=== PATIENT | male | born 1950 | race African-American/Black ===

== ENCOUNTER 2020-11-09 06:02 | Inpatient (IN) | payer MEDICARE ==
[2020-11-09] VITALS (11 sets, daily range): BP systolic 139–186; BP diastolic 72–117; BMI 31.5
[~2020-11-09] VITALS: Ht 188 cm; Wt 111.1 kg
[2020-11-09 07:50] LABS: BASOPHILS 0.2 % (0-2); EOSINOPHILS 0.2 % (0-7); HEMATOCRIT 42.6 % (42.0-54.0); HEMOGLOBIN 14.2 g/dL (13.5-17.5); IMMATURE GRANULOCYTES 0.6 % (0-5); LYMPHOCYTE ABS# 1.21 10x3/uL (1.32-3.57); LYMPHOCYTES 10.2 % (15-50); MCH 33.7 pg (26.0-34.0); MCHC 33.3 g/dL (31.0-37.0); MCV 101.2 fL (80.0-100.0); MEAN PLATELET VOLUME 8.7 fL (7.4-10.4); MONOCYTES 6.9 % (2-11); NEUTROPHIL ABS# 9.69 10x3/uL (1.78-5.38); NEUTROPHILS 81.9 % (40-80); PLATELET COUNT 201 10x3/uL (130-400); RBC 4.21 10x6/uL (4.20-6.10); RDW 13.9 % (11.5-14.5); WBC 11.8 10x3/uL (4.8-10.8)
[2020-11-09 07:58] LABS: INR 1.1 (0.85-1.17); PROTIME 13.2 SECONDS (11.6-15.0)
[2020-11-09 08:00] LABS: CALC OSMOLALITY 276 mosm/kg (275-300); CALCIUM 9.4 mg/dL (8.5-10.1); CARBON DIOXIDE 27.9 mmol/L (21.0-32.0); CHLORIDE - SERUM 103 mmol/L (98-107); CREATININE - SERUM 0.8 mg/dL (0.6-1.3); GLUCOSE 98 mg/dL (74-106); POTASSIUM - SERUM 4.7 mmol/L (3.5-5.1); SODIUM 139 mmol/L (136-145); UREA NITROGEN 11 mg/dL (7-18); eGFR NON AFRICAN AMERICAN > 90 mL/min (90-120)
--- NOTE | 2020-11-09 08:14 | NUR ---
PATIENT TAKEN TO CT AT 0745, RETURNED TO ROOM AT 0812. TOLERATED CT WELL.
[2020-11-09 08:17] LABS: ALBUMIN 3.5 g/dL (3.4-5.0); ALKALINE PHOSPHATASE 72 U/L (30-120); ALT (SGPT) 23 U/L (10-68); BILIRUBIN - TOTAL 0.22 mg/dL (0.2-1.3); CKMB 10.1 U/L (0.0-3.6); CREATINE KINASE 552 UL (21-232); MAGNESIUM - SERUM 1.7 mg/dL (1.8-2.4); PROTEIN - SERUM 7.9 g/dL (6.4-8.2); TROPONIN-I < 0.017 ng/mL (0.000-0.060)
--- NOTE | 2020-11-09 08:56 | NUR ---
PATIENT ASSISTED TO POSITION OF COMFORT.
--- NOTE | 2020-11-09 11:29 | NUR ---
SURGERY PACKET COMPLETE.
--- NOTE | 2020-11-09 12:49 | NUR ---
PATIENT TAKEN TO SURGERY BY OR TEAM.
--- NOTE | 2020-11-09 14:55 | NUR ---
REPORT CALLED TO MED SURG. ACCEPTED TO ROOM 2207.
--- NOTE | 2020-11-09 16:53 | NUR ---
ARRIVES TO UNIT FROM RECOVERY, 02 AT 3 LITERS PER NC, IV INFUSING PER RAC, DRAIN TO L SHOULDER, DRESSING CLEAR CLEAN AND DRY, SURGICAL SITE COVERED, ALSO IT IS CLEAN AND DRY, PT SLEEPING, SLING IN PLACE TO L ARM, CONT TO MONITOR PAIN
--- NOTE | 2020-11-09 17:16 | NUR ---
PT STATES THAT HE TAKES NO HOME MEDS.
--- NOTE | 2020-11-09 19:29 | NUR ---
MOVED PATIENT TO ROOM 1204. PATIENT TRANS FROM WHEELCHAIR TO BED WITHOUT DIFFICULTY. PATIENT'S O2 AT 84% ON 3L NC. INCREASED OXYGEN TO 4L. PATIENT'S O2 AT 94%. PATIENT'S DRESSING TO LEFT SHOULDER C/D/I. SLING IN PLACE. SCD HOSE AND NON-SLIP SOCKS IN PLACE. IV INFUSING TO RIGHT AC, NO SIGNS OF INFILTRATION NOTED. PATIENT DENIES OTHER NEEDS AT THIS TIME. BED IN LOWEST POSITION, CALL LIGHT WITHIN REACH, AND BED ALARM ON. ENCOURAGED THE PATIENT TO CALL IF HE HAS NEEDS.
[2020-11-10] VITALS (7 sets, daily range): BP systolic 115–155; BP diastolic 38–79; Ht 188 cm; Wt 111.1 kg
--- NOTE | 2020-11-10 07:12 | OP ---
PATIENT NAME: ELIA RAO MEDICAL RECORD: [id number] :46 LOCATION:D.M3 D.1204 ADMISSION DATE:11/09/20 SURGEON: RAYRAY LEE DO DATE OF OPERATION: 11/09/2020 PROCEDURE PERFORMED: Left reverse total shoulder arthroplasty. PREOPERATIVE DIAGNOSIS: Left proximal humerus fracture. POSTOPERATIVE DIAGNOSIS: Left proximal humerus fracture. INDICATIONS: Mr. Elia Rao is a 69-year-old male who had a syncopal episode and fell onto his left shoulder and side early this morning and he was brought to the ER. He had x-rays done of his left shoulder, seeing a proximal humerus fracture that was comminuted in about 3 different pieces at the surgical neck extending down to the shaft approximately 3 cm. The patient also had rib fractures on that side, I believe 3 or 4, he was in severe pain. I talked to him about what to do. I told him we could try fracture fixation through a nail or plate. He then told me that 3 years ago he was told that he needed a shoulder replacement and that his rotator cuff was torn. In going up that information, I told him that if that were the case, then a reverse total shoulder would be the best option for him. He was okay with that and was aware of the risks including infection, bleeding, damage to nerves or vessels in the area, continued pain, loosening of implants, failure of implants, dislocation, blood clots, need for further surgery, loss of motion of that arm and even and he signed the consent. SURGEON: Rayray Lee DO DESCRIPTION OF PROCEDURE: The patient was given a block by anesthesia in preoperative area and taken to the operative suite, laid in supine position, sedated and intubated. He was then given 900 mg of clindamycin and moved over to the table, sat up in the beach chair position and the left shoulder was prepped and draped in sterile fashion. Timeout was performed. Everyone was in agreement with the correct site, side, patient, and procedure. I then began by making an incision over the deltopectoral interval, making careful dissection down to the pectoral, released the proximal centimeter or so and tenodesed the long head of the biceps tendon to it and then cut the long head of the biceps, followed up into the rotator interval, peeled off the subscapularis after tagging it and then finished off the tear that was in the supraspinatus and then removed the proximal humerus fracture. I then exposed the glenoid, removed the labrum, put a centering pin in and then reamed from the baseplate, first tried 30, then a 35 and a 40 screw. 40 central screw got a good bite and then put three 25 peripheral screws and 20 mm in the anterior inferior that was overall 25 mm locking screws. Got good fixation of the baseplate and then impacted on the glenosphere with a +3. I then exposed the humeral shaft, reamed to a 14, decided to go with a 12 with a cement mantle with a fracture stem. I then cleaned out the humeral shaft, put in a 12 to trial. Wrapped in a Ray-Marvin and then reduced it, seemed to have adequate height, but we knew we have to build up on the tray due to it being somewhat loose. I then irrigated out the humerus and put in a cement stopper and mixed the cement. Cement was entered into the canal and then put on the implant and then the implant was put in using a 30-degree external rotation guide off of the instrument on the forearm. The cement then hardened. I then trialed a +5 tray with a +3 poly. It seemed to fit well, had good tension on the deltoid and the conjoined tendon, I decided to OPERATIVE REPORT [id number] ELIA RAO go with that. I then reduced it and while ranging, brought the arm forward flexion and it seemed very loose. It was easy to shuck and dislocate with arm at 90 degrees of forward flexion. I did not want that as there is a risk of dislocation. I then removed the +5 tray and put a +10 tray with a 3 retention poly in and reduced with somewhat difficulty, but it did reduce and had good tension on the deltoid and conjoined tendon and was more stable in forward flexion and 0 degrees abduction also, had good range of motion. I then irrigated with a 10% povidone iodine and 500 mL of normal saline solution and irrigated that out with over a liter of normal saline. I then put in Jair, vancomycin and tobramycin powder, put a drain through the shoulder exiting posteriorly. Jayant Nuñez, certified personal chef, closed the site with 2-0 Vicryl in inverted interrupted fashion, 4-0 Monocryl running on the skin, Prineo glue on the skin and then secured the drain with 2 Tegaderms. He was then dressed with Telfa and Tegaderm, awakened and put in a sling and taken to recovery in stable condition. Blood loss was approximately 200 mL. COMPLICATIONS: None. TRANSINT:[id number] Voice Confirmation ID: [id number] DOCUMENT ID: [id number] RAYRAY LEE DO at 0712 CC: [id number] DICTATION DATE: 11/09/20 1548 HEALTH TECHNICAL WRITER: 11/10/20 0013 ADM IN [facility] [address] [place] [address]
--- NOTE | 2020-11-10 07:58 | NUR ---
PT SEEN AND ASSESSED. LUNG SOUNDS CRACKLES AND RALES OXYGEN AT 4L PER NC. DRESSING TO LEFT SHOULDER CLEAN DRY INTACT WITH ALYSSA DRAIN COMPRESSED. SCDS ON BILAT. INSTRUCTED/ENCOURAGED WITH INCENTIVE SPIROMETRY. STATES RIBS HURT. CALL LIGHT IN REACH
[2020-11-10 07:59] LABS: BASOPHILS 0.1 % (0-2); EOSINOPHILS 0.1 % (0-7); HEMATOCRIT 37.2 % (42.0-54.0); HEMOGLOBIN 12.1 g/dL (13.5-17.5); IMMATURE GRANULOCYTES 0.1 % (0-5); LYMPHOCYTE ABS# 1.04 10x3/uL (1.32-3.57); LYMPHOCYTES 12.9 % (15-50); MCH 33.2 pg (26.0-34.0); MCHC 32.5 g/dL (31.0-37.0); MCV 101.9 fL (80.0-100.0); MEAN PLATELET VOLUME 9.1 fL (7.4-10.4); MONOCYTES 11.8 % (2-11); NEUTROPHIL ABS# 6.06 10x3/uL (1.78-5.38); PLATELET COUNT 202 10x3/uL (130-400); RBC 3.65 10x6/uL (4.20-6.10); RDW 13.8 % (11.5-14.5)
[2020-11-10 08:06] LABS: WBC 8.1 10x3/uL (4.8-10.8)
[2020-11-10 08:20] LABS: ALKALINE PHOSPHATASE 47 U/L (30-120); ALT (SGPT) 19 U/L (10-68); BILIRUBIN - TOTAL 0.78 mg/dL (0.2-1.3); CALC OSMOLALITY 270 mosm/kg (275-300); CALCIUM 8.1 mg/dL (8.5-10.1); CARBON DIOXIDE 26.8 mmol/L (21.0-32.0); CHLORIDE - SERUM 102 mmol/L (98-107); CREATININE - SERUM 0.8 mg/dL (0.6-1.3); GLUCOSE 106 mg/dL (74-106); MAGNESIUM - SERUM 1.5 mg/dL (1.8-2.4); PHOSPHOROUS 2.8 mg/dL (2.5-4.9); POTASSIUM - SERUM 4.1 mmol/L (3.5-5.1); PROTEIN - SERUM 6.5 g/dL (6.4-8.2); SODIUM 136 mmol/L (136-145); UREA NITROGEN 9 mg/dL (7-18); eGFR NON AFRICAN AMERICAN > 90 mL/min (90-120)
[2020-11-10 12:42] LABS: UDS - AMPHET NEGATIVE QUAL (NEGATIVE); UDS - BARB NEGATIVE QUAL (NEGATIVE); UDS - BENZO POSITIVE QUAL (NEGATIVE); UDS - COCAINE NEGATIVE QUAL (NEGATIVE); UDS - OPIATE NEGATIVE QUAL (NEGATIVE); UDS - PCP NEGATIVE QUAL (NEGATIVE); UDS - THC NEGATIVE QUAL (NEGATIVE)
--- NOTE | 2020-11-11 02:23 | NUR ---
PT RESTING WITH EYES CLOSED, RESPIRATIONS EVEN AND UNLABORED. VSS. BED IS LOW, CALL LIGHT WITHIN REACH, BED ALARM ON.
[2020-11-11 05:00] VITALS: BP 142/70
--- NOTE | 2020-11-11 07:22 | NUR ---
DAVOL DRAIN REMOVED ORDERED TO LEFT SHOULDER. SMALL 2 X 2 AND WHITE SQUARE BORDER GUAZE PLACED. NO BLLEDING SEEN. DATED. TOLERATED WELL.
[2020-11-11 07:36] VITALS: BP 144/86
[2020-11-11 08:03] LABS: BASOPHILS 0.1 % (0-2); EOSINOPHILS 0.1 % (0-7); HEMATOCRIT 35.5 % (42.0-54.0); HEMOGLOBIN 11.5 g/dL (13.5-17.5); IMMATURE GRANULOCYTES 0.3 % (0-5); LYMPHOCYTE ABS# 1.01 10x3/uL (1.32-3.57); LYMPHOCYTES 10.1 % (15-50); MCH 33.2 pg (26.0-34.0); MCHC 32.4 g/dL (31.0-37.0); MCV 102.6 fL (80.0-100.0); MEAN PLATELET VOLUME 8.9 fL (7.4-10.4); MONOCYTES 9.6 % (2-11); NEUTROPHILS 79.8 % (40-80); PLATELET COUNT 184 10x3/uL (130-400); RBC 3.46 10x6/uL (4.20-6.10)
--- NOTE | 2020-11-11 08:06 | NUR ---
AWAKE AND ALERT. ORIENTED X3. NO C/O AT THIS TIME. LUNGS HAVE CRACKLES THROUGHOUT LUNG GUEVARA, PRODUCTIVE COUGH REPORTED. SKIN IS INTACT WITHOUT REDNESS EXCEPT INCISION TO LEFT SHOULDER WHICH HAS A DRY INTACT DRESSING IN PLACE. SLING IN PLACE TO LEFT ARM, REPOSITIONED ON PILLOW TO ALLEVIATE SWELLING IN LEFT HAND. IV TO RIGHT AC IS PATENT WITHOUT REDNESS AT INSERTION SITE. DENIES NEEDS.
[2020-11-11 08:07] LABS: ALBUMIN 2.8 g/dL (3.4-5.0); ALKALINE PHOSPHATASE 52 U/L (30-120); ALT (SGPT) 17 U/L (10-68); CALC OSMOLALITY 273 mosm/kg (275-300); CALCIUM 8.4 mg/dL (8.5-10.1); CARBON DIOXIDE 27.9 mmol/L (21.0-32.0); CHLORIDE - SERUM 103 mmol/L (98-107); CREATININE - SERUM 0.7 mg/dL (0.6-1.3); GLUCOSE 117 mg/dL (74-106); PHOSPHOROUS 2.2 mg/dL (2.5-4.9); POTASSIUM - SERUM 3.9 mmol/L (3.5-5.1); PROTEIN - SERUM 6.3 g/dL (6.4-8.2); SODIUM 137 mmol/L (136-145); UREA NITROGEN 9 mg/dL (7-18); eGFR NON AFRICAN AMERICAN > 90 mL/min (90-120)
[2020-11-11 08:11] LABS: MAGNESIUM - SERUM 1.9 mg/dL (1.8-2.4)
--- NOTE | 2020-11-11 09:25 | NUR ---
ATE MOST OF BREAKFAST. TOOK AM MEDS WITHOUT DIFFICULTY. DENIES NEEDS. UP IN CHAIR AT BEDSIDE.
[2020-11-11 11:20] VITALS: BP 148/72
--- NOTE | 2020-11-11 15:27 | NUR ---
Rehab Note- Acute Inpatient Rehab prescreen order received. The patient is a good candidate for an inpatient acute rehab stay when medically stable, will need a PCR Covid screening if he is inagreeance with [facility] Acute Inpatient Rehab stay when discharged from the acute hospital. Thank you for this referral! Latricia Rudd RN Clinical Liaison, [facility] Rehab
--- NOTE | 2020-11-11 16:00 | NUR ---
FOUND WITH IV OUT. CATHETER INTACT. WILL RESITE.
--- NOTE | 2020-11-11 17:30 | NUR ---
UP TO BR PER SBA. NO BM AT THIS TIME. RESITED IV TO RIGHT FOREARM AFTER ONE ATTEMPT WITH 20 G. NO CHANGES NOTED. DENIES NEEDS.
[2020-11-11 17:50] VITALS: BP 153/85
[2020-11-11 19:54] VITALS: BP 136/75
--- NOTE | 2020-11-11 20:00 | NUR ---
ALERT SITTING UP IN CHAIR AT BEDSIDE, LEFT ARM IN SLING, DENIES PAIN OR NEEDS AT THIS TIME, SEE SHIFT ASSESSMENT, CALL LIGHT IN REACH
[2020-11-12 04:30] VITALS: BP 147/83
[2020-11-12] MEDS ORDERED: HYDROCODON-ACE1 EA10 PO (07:20)
--- NOTE | 2020-11-12 07:23 | NUR ---
RESTING IN BED WITH EYES CLOSED, NO CURRENT S/S OF DISTRESS. CURRENTLY RCVING 4L VIA NC. IV LOCATED TO RIGHT FA CURRENTLY RUNNING 1/2NS @ 30ML. WILL CONT TO MONITOR.
[2020-11-12 08:53] LABS: BASOPHILS 0.1 % (0-2); EOSINOPHILS 0.9 % (0-7); HEMATOCRIT 33.5 % (42.0-54.0); HEMOGLOBIN 10.7 g/dL (13.5-17.5); IMMATURE GRANULOCYTES 0.2 % (0-5); LYMPHOCYTE ABS# 1.57 10x3/uL (1.32-3.57); LYMPHOCYTES 17.2 % (15-50); MCHC 31.9 g/dL (31.0-37.0); MCV 103.4 fL (80.0-100.0); MONOCYTES 8.1 % (2-11); NEUTROPHIL ABS# 6.72 10x3/uL (1.78-5.38); NEUTROPHILS 73.5 % (40-80); PLATELET COUNT 196 10x3/uL (130-400); RBC 3.24 10x6/uL (4.20-6.10); RDW 13.9 % (11.5-14.5); WBC 9.1 10x3/uL (4.8-10.8)
--- NOTE | 2020-11-12 09:05 | NUR ---
DRESSING TO SHOULDER CHANGED PER DRS ORDERS.
[2020-11-12 09:13] LABS: ALBUMIN 2.5 g/dL (3.4-5.0); ALKALINE PHOSPHATASE 50 U/L (30-120); ALT (SGPT) 18 U/L (10-68); BILIRUBIN - TOTAL 0.55 mg/dL (0.2-1.3); CALC OSMOLALITY 272 mosm/kg (275-300); CALCIUM 8.3 mg/dL (8.5-10.1); CARBON DIOXIDE 30.4 mmol/L (21.0-32.0); CHLORIDE - SERUM 103 mmol/L (98-107); CREATININE - SERUM 0.7 mg/dL (0.6-1.3); GLUCOSE 91 mg/dL (74-106); MAGNESIUM - SERUM 2.1 mg/dL (1.8-2.4); PHOSPHOROUS 2.5 mg/dL (2.5-4.9); POTASSIUM - SERUM 3.9 mmol/L (3.5-5.1); SODIUM 137 mmol/L (136-145); UREA NITROGEN 9 mg/dL (7-18); eGFR NON AFRICAN AMERICAN > 90 mL/min (90-120)
[2020-11-12 09:21] VITALS: BP 132/72
--- NOTE | 2020-11-12 11:12 | MORECARE ---
CASE MANAGEMENT DISCHARGE SUMMARY PATIENT: MANDY TORRES UNIT: [id number] ADM DATE: 11/09/20 AGE: 69 : 48 SEX: M ROOM/BED: D.1204 AUTHOR: DC TSANG PHYSICIAN: REFERRING PHYSICIAN: EZRA LOZA MD DATE OF SERVICE: 11/12/20 Discharge Plan Patient Name: MANDY TORRES [facility] [facility] 1950 Planned Disposition: Inpatient Rehab Anticipated Discharge Date: Discharge Date: Expected LOS: Initial Reviewer: [email or web address] Initial Review Date: 11/09/2020 Generated: 11/12/20 12:12 pm DCPIA - Discharge Planning Initial Assessment Updated by [email or web address]: Mica You on 11/12/20 11:11 am * Is the patient Alert and Oriented? Yes * How many steps to enter\exit or inside your home? 10 * PCP NO PCP * [facility] * Preadmission Environment Home Alone * ADLs Independent * Other Equipment CPAP AND 02 TANK - OLD HASN'T BEEN MAINTAINED FOR 7 YRS * List name and contact numbers for known caregivers / representatives who currently or will assist patient after discharge: JENNA TORRES - DAUGHTER - [phone] * Verbal permission to speak to the caregivers and representatives has been obtained from the patient. Yes * Community resources currently utilized None * Additional services required to return to the preadmission environment? No * Can the patient safely return to the preadmission environment? Yes * Has this patient been hospitalized within the prior 30 days at any hospital? No Patient Name: MANDY TORRES Page [id number] at 1112 All edits/amendments must be made on the electronic document DICTATION DATE: 11/12/20 111 GROUNDS CLEANER: LAURA 11/12/20 111 RPT#: [id number] DC DATE: STATUS: ADM IN [facility] [address] [place] [address] END OF REPORT
--- NOTE | 2020-11-12 11:21 | MORECARE ---
CASE MANAGEMENT DISCHARGE SUMMARY PATIENT: MANDY TORRES UNIT: [id number] ADM DATE: 11/09/20 AGE: 69 : 48 SEX: M ROOM/BED: D.1204 AUTHOR: SHARAN,DOC PHYSICIAN: REFERRING PHYSICIAN: EZRA LOZA MD DATE OF SERVICE: 11/12/20 Discharge Plan Patient Name: MANDY TORRES Facility: [facility]:[place] : 1950 Planned Disposition: Inpatient Rehab Anticipated Discharge Date: Discharge Date: Expected LOS: Initial Reviewer: [email or web address] Initial Review Date: 11/09/2020 Generated: 11/12/20 12:20 pm Comments DCP- Discharge Planning Updated by [email or web address]: Mica You on 11/12/20 10:[address] Patient Name: MANDY TORRES Admission Status: ER Accout number: [id number] Admission Date: 11-09-2020 : 1950 Admission Diagnosis:PAIN IN LEFT SHOULDER Attending: EZRA LOZA Current LOS: 3 Anticipated DC Date: Planned Disposition: Inpatient Rehab Primary Insurance: MEDICARE A & B Discharge Planning Comments: CM met with patient to complete initial dc planning assessment. CM educated patient on the CM role and verbal consent given by patient to complete assessment. Patient lives at home alone. Patient is independent. At discharge patient plans to return home and feels this is a safe discharge. CM discussed availability of home health, rehab services, and medical equipment. Patient would like inpatient rehab [facility] signed. Patient will have family to transport home. Patient denied known discharge needs at this time. CM will continue to follow and will assist as needed with dc plans/needs. D/C IMM SIGNED 11/12/20 @ 1010. Public Relations Director: Mica You DCPIA - Discharge Planning Initial Assessment Updated by [email or web address]: Mica You on 11/12/20 11:11 am * Is the patient Alert and Oriented? Yes * How many steps to enter\exit or inside your home? 10 * PCP NO PCP * [facility] * Preadmission Environment Home Alone * ADLs Independent * Other Equipment CPAP AND 02 TANK - OLD HASN'T BEEN MAINTAINED FOR 7 YRS * List name and contact numbers for known caregivers / representatives who currently or will assist patient after discharge: JENNA TORRES - DAUGHTER - [phone] * Verbal permission to speak to the caregivers and representatives has been obtained from the patient. Yes * Community resources currently utilized None * Additional services required to return to the preadmission environment? No * Can the patient safely return to the preadmission environment? Yes * Has this patient been hospitalized within the prior 30 days at any hospital? No Last DP export: 11/12/20 10:12 a Patient Name: MANDY TORRES Page [id number] at 1121 All edits/amendments must be made on the electronic document DICTATION DATE: 11/12/201119 TRANSCRIPTION SPECIALIST: LAURA 11/12/201119 RPT#: [id number] DC DATE: STATUS: ADM IN [facility] [address] [place] [address] END OF REPORT
[2020-11-12] MEDS ORDERED: LIBRIUM25 MG PO (12:11)
[2020-11-12] MEDS ORDERED: IPRAT-ALBUT 0.5-3 ML UPD (12:11)
[2020-11-12] MEDS ORDERED: COLACE100 MG PO (12:11)
[2020-11-12] MEDS ORDERED: NICODERM CQ1 EAC2 TRANSDERM (12:11)
[2020-11-12] MEDS ORDERED: MIRALAX17 GM PO (12:11)
[2020-11-12] MEDS ORDERED: HYDRALAZINE20 MG/ML IV (12:11)
[2020-11-12] MEDS ORDERED: MUCINEX600 MG PO (12:11)
[2020-11-12] MEDS ORDERED: ATIVAN1 MG PO (12:11)
[2020-11-12] MEDS ORDERED: VITAMIN B-1100 M1 PO (12:11)
[2020-11-12] MEDS ORDERED: MULTI-DAY VITAM1 TAB PO (12:11)
[2020-11-12 13:43] VITALS: BP 128/60
[2020-11-12 16:58] VITALS: BP 141/80
--- NOTE | 2020-11-12 18:14 | NUR ---
REPORT CALLED TO [facility]. ASKED TO WAIT TILL SHIFT CHANGE OR LATER. WILL CALL WHEN READY FOR PT. CALL LIGHT IN REACH. DC PAPERS SIGNED
--- NOTE | 2020-11-12 19:15 | NUR ---
ALERT SITTING UP IN CHAIR AT BEDSIDE, LEFT ARM IN SLING, DENIES PAIN OR NEEDS AT THIS TIME, AWAITING TRANSFER TO REHAB
[2020-11-12 20:09] VITALS: BP 118/65
--- NOTE | 2020-11-13 06:43 | MORECARE ---
CASE MANAGEMENT DISCHARGE SUMMARY PATIENT: MANDY TORRES UNIT: [id number] ADM DATE: 11/09/20 AGE: 69 : 48 SEX: M ROOM/BED: D.1204 AUTHOR: SHARAN,DOC PHYSICIAN: REFERRING PHYSICIAN: EZRA LOZA MD DATE OF SERVICE: 11/13/20 Discharge Plan Patient Name: MANDY TORRES Facility: [facility]:[place] : 1950 Planned Disposition: Inpatient Rehab Anticipated Discharge Date: Discharge Date: 11/12/2020 Expected LOS: Initial Reviewer: [email or web address] Initial Review Date: 11/09/2020 Generated: 11/13/20 7:42 am Comments DCP- Discharge Planning Updated by [email or web address]: Mica You on 11/12/20 10:[address] Patient Name: MANDY TORRES Admission Status: ER Accout number: [id number] Admission Date: 11-09-2020 : 1950 Admission Diagnosis:PAIN IN LEFT SHOULDER Attending: EZRA LOZA Current LOS: 3 Anticipated DC Date: Planned Disposition: Inpatient Rehab Primary Insurance: MEDICARE A & B Discharge Planning Comments: CM met with patient to complete initial dc planning assessment. CM educated patient on the CM role and verbal consent given by patient to complete assessment. Patient lives at home alone. Patient is independent. At discharge patient plans to return home and feels this is a safe discharge. CM discussed availability of home health, rehab services, and medical equipment. Patient would like inpatient rehab [facility] signed. Patient will have family to transport home. Patient denied known discharge needs at this time. CM will continue to follow and will assist as needed with dc plans/needs. D/C IMM SIGNED 11/12/20 @ 1010. Snow Plow Operator: Mica You DCPIA - Discharge Planning Initial Assessment Updated by [id number]: Mica You on 11/12/20 11:11 am * Is the patient Alert and Oriented? Yes * How many steps to enter\exit or inside your home? 10 * PCP NO PCP * [facility] * Preadmission Environment Home Alone * ADLs Independent * Other Equipment CPAP AND 02 TANK - OLD HASN'T BEEN MAINTAINED FOR 7 YRS * List name and contact numbers for known caregivers / representatives who currently or will assist patient after discharge: JENNA TORRES - DAUGHTER - [phone] * Verbal permission to speak to the caregivers and representatives has been obtained from the patient. Yes * Community resources currently utilized None * Additional services required to return to the preadmission environment? No * Can the patient safely return to the preadmission environment? Yes * Has this patient been hospitalized within the prior 30 days at any hospital? No Coverage Notice Reviewer: [email or web address] Sunny You Notice Issued Date-Time: 11/12/2020 10:10 Notice Type: Patient Choice Letter Notice Delivered To: Patient Relationship to Patient: Self Peanut Picker Name: Delivery Method: HAND - Hand Delivered Amber Days: Prior Verbal Notification: Recipient Understood Notice: Yes Recipient Signature: Yes Med Rec Note Co-signed by Attending: Coverage Notice Comment: inpatient rehab [facility] Reviewer: [email or web address] Sunny You Notice Issued Date-Time: 11/12/2020 10:10 Notice Type: IM Discharge Notice Notice Delivered To: Patient Relationship to Patient: Self Peanut Picker Name: Delivery Method: HAND - Hand Delivered Amber Days: Prior Verbal Notification: Recipient Understood Notice: Yes Recipient Signature: Yes Med Rec Note Co-signed by Attending: Coverage Notice Comment: Last DP export: 11/12/20 10:21 a Patient Name: MANDY TORRES Page [phone] at 0643 All edits/amendments must be made on the electronic document DICTATION DATE: 11/13/20642 DEER FARMER: LAURA 11/13/20642 RPT#: [id number] DC DATE:11/12/20 STATUS: DIS IN [facility] [address] [place] [address] END OF REPORT
== END 2020-11-12 20:34 | DRG 483 ==
LOC: D.ER 06:02 → D.EDHOLD 07:36 → D.M3 07:36 → D.MS 07:36 → D.M3 19:28
PROVIDERS: Family Medicine; Orthopaedic Surgery; ADMIT Emergency Medicine; ATTEND Emergency Medicine
PROC: 0RRK00Z Replacement of Left Shoulder Joint with Reverse Ball and Socket Synthetic Substitute, Open Approach (ICD-10-PCS; principal; 2020-11-09 13:00)
DX: S42.302A Unspecified fracture of shaft of humerus, left arm, initial encounter for closed fracture (principal); J18.9 Pneumonia, unspecified organism; S22.42XA Multiple fractures of ribs, left side, initial encounter for closed fracture; F17.203 Nicotine dependence unspecified, with withdrawal; W19.XXXA Unspecified fall, initial encounter; E83.42 Hypomagnesemia; I25.10 Atherosclerotic heart disease of native coronary artery without angina pectoris

== ENCOUNTER 2020-11-12 21:16 | Inpatient (IN) | payer MEDICARE ==
[~2020-11-12] VITALS: Ht 188 cm; Wt 112.5 kg
[~2020-11-12 21:16] MED LIST: ATIVAN1 MG PO; COLACE100 MG PO; HYDRALAZINE20 MG/ML IV; HYDROCODON-ACE1 EA10 PO; IPRAT-ALBUT 0.5-3 ML UPD; LIBRIUM25 MG PO; MIRALAX17 GM PO; MUCINEX600 MG PO; MULTI-DAY VITAM1 TAB PO; NICODERM CQ1 EAC2 TRANSDERM; VITAMIN B-1100 M1 PO
[2020-11-12 22:21] VITALS: BP 147/89; BMI 31.9
--- NOTE | 2020-11-12 22:44 | NUR ---
ADMIT FOR [facility] AND SERVICES OF DR [facility]. AWAKE AND ALERT. DX OF LEFT SHOULDER REPAIR AFTER RECIEVING FRACTURE FROM FALL. ALSO HAS RIB FRACTURES IN RIBS 5,6,7. LEFT SHOULDER SLING IN PLACE. ORIENTED X 4. ASSISTED TO SIT IN RECLINER DUE TO PATIENT'S PREFERENCE FOR COMFORT. SEE ADMISSION ASSESSMENT.
--- NOTE | 2020-11-13 05:45 | NUR ---
QUIET HOURS. RESTING IN BED WITH RESPIRATIONS UNLABORED ON O2/3L PER NASAL CANNULA. LEFT ARM SLING IN PLACE.
[2020-11-13 07:42] VITALS: BP 139/76
[2020-11-13 08:13] LABS: HEMATOCRIT 34.1 % (42.0-54.0); LYMPHOCYTES 15.8 % (15-50); MCH 33.4 pg (26.0-34.0); MCHC 32.3 g/dL (31.0-37.0); MCV 103.6 fL (80.0-100.0); MEAN PLATELET VOLUME 8.3 fL (7.4-10.4); NEUTROPHILS 76.3 % (40-80); PLATELET COUNT 225 10x3/uL (130-400); RBC 3.29 10x6/uL (4.20-6.10); RDW 13.4 % (11.5-14.5)
[2020-11-13 08:26] LABS: CALC OSMOLALITY 276 mosm/kg (275-300); CALCIUM 8.6 mg/dL (8.5-10.1); CARBON DIOXIDE 31.8 mmol/L (21.0-32.0); CHLORIDE - SERUM 102 mmol/L (98-107); CREATININE - SERUM 0.7 mg/dL (0.6-1.3); GLUCOSE 98 mg/dL (74-106); POTASSIUM - SERUM 3.4 mmol/L (3.5-5.1); SODIUM 139 mmol/L (136-145); UREA NITROGEN 11 mg/dL (7-18); eGFR NON AFRICAN AMERICAN > 90 mL/min (90-120)
--- NOTE | 2020-11-13 10:19 | NUR ---
PATIENT ADMITTED TO REHAB FROM ACUTE FLOOR. AT THIS TIME HE HAS NO PCP. DME AT HOME IS O2 AND A C-PAP. DISCHARGE PLANS ARE FOR PATIENT TO RETURN TO HIS HOME. WILL CONTINUE TO FOLLOW WITH PATIENT.
[2020-11-13 10:58] VITALS: Ht 188 cm; Wt 112.5 kg
[2020-11-13 19:58] VITALS: BP 124/73
--- NOTE | 2020-11-13 20:00 | NUR ---
AWAKE AND ALERT. RESTING IN BED WITH O2/3L ON PER NASAL CANNULA. COARSE WET LUNG SOUNDS BILATERALLY WITH PRODUCTIVE COUGH NOTED. LEFT SHOULDER REPAIR SITE DRESSING INTACT AND LEFT ARM IN SLING. RIGHT ARM SALINE LOCK INTACT WITH NO SIGNS OF INFILTRATION. NO ACUTE DISTRESS NOTED. CALL LIGHT IN REACH.
--- NOTE | 2020-11-14 02:04 | NUR ---
SLEEPING WITH NO DISTRESS NOTED.
--- NOTE | 2020-11-14 06:08 | NUR ---
QUEIT HOURS. SLEPT MOST OF SHIFT IN CHAIR. O2/3L ON PER NASAL CANNULA. CONTINUES TO COUGH AT TIMES, COARSE LUNG SOUNDS.
[2020-11-14 06:19] LABS: BASOPHILS 0.3 % (0-2); EOSINOPHILS 3.3 % (0-7); HEMATOCRIT 35.4 % (42.0-54.0); HEMOGLOBIN 11.2 g/dL (13.5-17.5); IMMATURE GRANULOCYTES 0.4 % (0-5); LYMPHOCYTE ABS# 1.36 10x3/uL (1.32-3.57); MCH 33.3 pg (26.0-34.0); MCHC 31.6 g/dL (31.0-37.0); MCV 105.4 fL (80.0-100.0); MEAN PLATELET VOLUME 8.8 fL (7.4-10.4); MONOCYTES 10.2 % (2-11); NEUTROPHILS 68.8 % (40-80); RBC 3.36 10x6/uL (4.20-6.10); RDW 13.9 % (11.5-14.5)
[2020-11-14 06:26] LABS: PLATELET COUNT 272 10x3/uL (130-400)
[2020-11-14 06:33] LABS: CALC OSMOLALITY 280 mosm/kg (275-300); CHLORIDE - SERUM 104 mmol/L (98-107); CREATININE - SERUM 0.8 mg/dL (0.6-1.3); GLUCOSE 89 mg/dL (74-106); POTASSIUM - SERUM 3.6 mmol/L (3.5-5.1); SODIUM 142 mmol/L (136-145); UREA NITROGEN 11 mg/dL (7-18); eGFR NON AFRICAN AMERICAN > 90 mL/min (90-120)
[2020-11-14 08:03] VITALS: BP 131/73
--- NOTE | 2020-11-14 12:23 | NUR ---
SITTING UP IN WC IN ROOM FOR LUNCH. MEDEL X4. DENIES INCREASED PAIN BUT STATES HAS NOT HAD BM IN SEVERAL DAYS. MOM GIVEN THIS MORNING ORDERED WITH NO RESULT. MAG CITRATE ORDERED AND WILL GIVE TODAY. PRODUCTIVE COUGH NOTED. HAS OXYGEN AVAIL BUT NOT WEARING AT PRESENT. LUE IN SLING. CALL LIGHT IN REACH
--- NOTE | 2020-11-14 19:15 | NUR ---
RECEIVED PT SITTING UP IN CHAIR FINISHING DINNER. ALERT AND ORIENTED X3. DENIES ANY NEEDS OR PAIN. CONTINUES ON 3L VIA NC. ENCOURAGED TCDB AND INCENTIVE SPIROMETER USAGE. YELLOW SPUTUM NOTED WITH COUGH. RIGHT FOREARM IV PATENT. DRESSING AND SWAB CAPS INTACT. LUE DRESSING INTACT SLING ON. NO DISTRESS NOTED. CALL LIGHT AND WATER WITHIN REACH. FALL PRECAUTIONS IN PLACE. CPOC
--- NOTE | 2020-11-14 20:01 | NUR ---
TRANSPORTED OFF FLOOR VIA W/C BY RADIOLOGY FOR CXR.
--- NOTE | 2020-11-14 20:10 | NUR ---
RECEIVED PT TO FLOOR VIA W/C FROM RAD.
[2020-11-14 20:29] VITALS: BP 140/67
--- NOTE | 2020-11-15 01:30 | NUR ---
ASSISTED PT TO RESTROOM WITH MIN ASSIST USING W/C. INSTRUCTED PT TO PULL NURSE CORD WHEN FINISHED. PT VERBALIZED UNDERSTANDING.
--- NOTE | 2020-11-15 01:45 | NUR ---
ASSISTED PT WITH TOILETING HYGIENE. LARGE LOOSE BM. ASSISTED PT BACK TO ROOM AND TRANSFER TO CHAIR WITH MIN ASSIST. CONTINUES ON 3L VIA NC. NO DISTRESS NOTED. DENIES ANY OTHER NEEDS OR PAIN. CALL LIGHT WITHIN REACH. FALL PRECAUTIONS IN PLACE. CPOC
--- NOTE | 2020-11-15 04:47 | NUR ---
PT SITTING UP IN CHAIR EYES CLOSED RESTING. NO DISTRESS NOTED. CONTINUES ON 3L VIA NC. CALL LIGHT AND WATER WITHIN REACH. FALL PRECAUTIONS IN PLACE. CPOC
[2020-11-15 08:00] VITALS: BP 132/76
--- NOTE | 2020-11-15 13:02 | NUR ---
PT SITTING UP IN WHEELCHAIR, JUST FINISHED LUNCH. HE DENIES PAIN OR NEEDS. HE IS COUGHING UP CLEAR-YELLOW SPUTUM. HE REPORTS THAT THE MUCINEX IS HELPING. HE IS ON 3L NASAL CANNULA. O2 SAT IS 98%. CALL LIGHT IS WITHIN REACH.
--- NOTE | 2020-11-15 19:05 | NUR ---
RECEIVED PT SITTING UP IN CHAIR AWAKE. ALERT AND ORIENTED X4. DENIES ANY NEEDS OR PAIN. CONTINUES ON 3L VIA NC. RIGHT FOREARM IV PATENT. DRESSING AND SWAB CAPS INTACT. LEFT SHOULDER 7 DAY DRESSING INTACT (11/12/20). SLING IN USE. NO DISTRESS NOTED. CALL LIGHT AND WATER WITHIN REACH. FALL PRECAUTIONS IN PLACE. CPOC
[2020-11-15 21:09] VITALS: BP 131/59
--- NOTE | 2020-11-15 23:18 | NUR ---
ASSISTED PT WITH TRANSFER FROM CHAIR TO BED WITH MIN ASSIST. DENIES ANY OTHER NEEDS. CONTINUES ON 3L VIA NC. NO DISTRESS NOTED. CALL LIGHT WITHIN REACH. FALL PRECAUTIONS IN PLACE. CPOC
--- NOTE | 2020-11-16 01:43 | NUR ---
PT SITTING UP IN CHAIR AWAKE. DENIES ANY NEEDS OR PAIN. NO DISTRESS NOTED. CALL LIGHT WITHIN REACH. FALL PRECAUTIONS IN PLACE. CPOC
--- NOTE | 2020-11-16 04:06 | NUR ---
PT SITTING UP IN RECLINER NAPPING OFF AND ON. AROUSES EASILY. OFFERED PT ASSISTANCE BACK IN BED. PT DENIES, STATES RECLINER IS MORE COMFORTABLE. DENIES ANY PAIN OR NEEDS. CALL LIGHT, URINAL, AND HYDRATION WITHIN REACH. FALL PRECAUTIONS IN PLACE. CPOC
--- NOTE | 2020-11-16 07:45 | NUR ---
PT C/O PAIN 4/10 TO HIS LEFT RIBS. HE REPORTS THE PAIN IS AN 8/10 WHEN HE COUGHS. HE REPORTS HIS COUGH HAS LESSENED IN FREQUENCY AND PRODUCTION AND WHEN HE DOES COUGH UP PHLEGM HE STATES IT IS WHITE IN COLOR. INCENTIVE SPIROMETER AND DEEP BREATHING ENCOURAGED. HE IS ON 3L NASAL CANNULA WITH HUMIDIFICATION. HIS O2 SAT IS 97%. NORCO GIVEN WITH AM MEDICATIONS. HE DENIES FURTHER NEEDS. HE IS SITTING UP IN THE RECLINER. CALL LIGHT IS WITHIN REACH.
[2020-11-16 09:35] VITALS: BP 136/68
--- NOTE | 2020-11-16 18:47 | NUR ---
RECEIVED PT SITTING UP IN ROOM IN RECLINER. ALERT AND ORIENTED X4. CONTINUES ON O2/3L HUMIDIFIED VIA NC. C/0 / LEFT SHOULDER AND RIB DISCOMFORT. LAST NORCO ADMINISTERED BY GILMER CHAN @ 1630 PER EMAR. LEFT SHOULDER SECURED IN SLING READJUSTED SHOULDER STRAP PER PT REQUEST. NO DISTRESS NOTED. NO OTHER NEEDS VOICED. CALL LIGHT AND PERSONAL ITEMS WITHIN REACH. FALL PRECAUTIONS IN PLACE. CPOC
[2020-11-16 20:52] VITALS: BP 123/64
--- NOTE | 2020-11-16 23:20 | NUR ---
PT SITTING UP IN RECLINER WATCHING TV. DENIES ANY NEEDS OR PAIN. NO DISTRESS NOTED. CONTINUES ON O2/3L HUMDIFIED VIA NC. CALL LIGHT AND PERSONAL ITEMS WITHIN REACH. CPOC
--- NOTE | 2020-11-17 03:03 | NUR ---
PT LYING IN BED EYES CLOSED RESTING. HOB ELEVATED. RR EVEN AND UNLABORED. NO DISTRESS NOTED. CONTINUES ON O2/3L VIA NC. CALL LIGHT WITHIN REACH. CPOC
--- NOTE | 2020-11-17 05:04 | NUR ---
PT SITTING UP IN RECLINER WATCHING TV. DENIES ANY NEEDS OR PAIN. CONTINUES ON O2/3L HUMDIFIED VIA NC. LUE IN SLING. TOILETING OFFERED PT DENIES NEED. CALL LIGHT AND WATER WITHIN REACH. FALL PRECAUTIONS IN PLACE. CPOC
[2020-11-17 07:46] VITALS: BP 134/73
--- NOTE | 2020-11-17 08:00 | NUR ---
SITTING UP IN CHAIR EATING BREAKFAST.DENIES NEEDS.LEFT SHOULDER IN SLING.SHIFT ASSMT COMPLETED.
[2020-11-17 11:06] LABS: BASOPHILS 0.4 % (0-2); EOSINOPHILS 2.5 % (0-7); HEMATOCRIT 34.7 % (42.0-54.0); HEMOGLOBIN 10.9 g/dL (13.5-17.5); IMMATURE GRANULOCYTES 1.1 % (0-5); LYMPHOCYTE ABS# 1.69 10x3/uL (1.32-3.57); MCH 32.9 pg (26.0-34.0); MCHC 31.4 g/dL (31.0-37.0); MCV 104.8 fL (80.0-100.0); MEAN PLATELET VOLUME 8.5 fL (7.4-10.4); MONOCYTES 7.2 % (2-11); NEUTROPHIL ABS# 5.82 10x3/uL (1.78-5.38); NEUTROPHILS 68.8 % (40-80); PLATELET COUNT 288 10x3/uL (130-400); RBC 3.31 10x6/uL (4.20-6.10); RDW 13.6 % (11.5-14.5); WBC 8.5 10x3/uL (4.8-10.8)
[2020-11-17 11:18] LABS: CALC OSMOLALITY 277 mosm/kg (275-300); CARBON DIOXIDE 33.7 mmol/L (21.0-32.0); CHLORIDE - SERUM 103 mmol/L (98-107); CREATININE - SERUM 0.8 mg/dL (0.6-1.3); GLUCOSE 100 mg/dL (74-106); POTASSIUM - SERUM 3.4 mmol/L (3.5-5.1); SODIUM 140 mmol/L (136-145); UREA NITROGEN 10 mg/dL (7-18); eGFR NON AFRICAN AMERICAN > 90 mL/min (90-120)
--- NOTE | 2020-11-17 12:00 | NUR ---
SITTING UP IN CHAIR EATING LUNCH.
--- NOTE | 2020-11-17 19:15 | NUR ---
AWAKE AND ALERT. SITTING IN CHAIR IN ROOM. O2/3L ON PER NASAL CANNULA. LEFT ARM IN SLING. NO NEEDS VOICED.
[2020-11-17 20:05] VITALS: BP 122/61
--- NOTE | 2020-11-18 01:22 | NUR ---
RESTING IN RECLINER WITH RESPIRATIONS UNLABORED. O2/3L ON PER NASAL CANNULA. NO ACUTE DISTRESS NOTED.
--- NOTE | 2020-11-18 05:21 | NUR ---
QUIET HOURS. NO ACUTE CHANGES IN CONDITION THIS SHIFT. RESTING IN CHAIR WITH O2/3L ON PER NASAL CANNULA. LEFT ARM IN SLING. CALL LIGHT IN REACH.
[2020-11-18 08:00] VITALS: BP 161/89
--- NOTE | 2020-11-18 08:00 | NUR ---
SHIFT ASSMT COMPLETED.CL IN REACH.LEROY PT AT THIS TIME.BREAKFAST GIVEN.LT ARM IN SLING WITH DRSG LT SHOULDER INTACT.
--- NOTE | 2020-11-18 12:00 | NUR ---
UP IN CHAIR EATING LUNCH.
--- NOTE | 2020-11-18 14:08 | NUR ---
Nutrition Follow-up Diet: Regular PO intake: 80-100% x last 3 meals Last BM: 11/17/20 x 3 Wt: 248# (11/13/20) Meds noted: thiamin, miralax Labs noted: K 3.4(L) Recommend continue current diet. RD will follow-up within 7 days.
--- NOTE | 2020-11-18 16:00 | NUR ---
REMAINS IN CHAIR.DENIES NEEDS.
[2020-11-18 19:20] VITALS: BP 150/78
--- NOTE | 2020-11-18 19:36 | NUR ---
AWAKE AND ALERT. SITTING IN RECLINER IN ROOM WATCHING TV. REPORT RECIEVED FROM DAY NURSE THAT PATIENT HAS BEEN LETHARGIC THIS AFTERNOON. PATIENT SEEMS DROWSY RIGHT NOW. WILL CONTINUE TO MONITOR. O2/3L ON PER NASAL CANNULA. LEFT ARM IN SLING. NO ACUTE DISTRESS NOTED.
--- NOTE | 2020-11-19 04:52 | NUR ---
QUIET HOURS. SLEPT MOST OF SHIFT. CONTINUES TO BE DROWSY. DID GET UP TO BATHROOM A FEW TIMES BUT THEN WENT BACK TO CHAIR AND WENT BACK TO SLEEP. O2/3L ON PER NASAL CANNULA. LEFT ARM IN SLING. CALL LIGHT IN REACH.
[2020-11-19 06:37] LABS: BASOPHILS 0.3 % (0-2); EOSINOPHILS 2.1 % (0-7); HEMATOCRIT 35.7 % (42.0-54.0); HEMOGLOBIN 11.3 g/dL (13.5-17.5); IMMATURE GRANULOCYTES 1.3 % (0-5); LYMPHOCYTE ABS# 1.52 10x3/uL (1.32-3.57); MCH 32.9 pg (26.0-34.0); MCHC 31.7 g/dL (31.0-37.0); MCV 104.1 fL (80.0-100.0); MEAN PLATELET VOLUME 8.6 fL (7.4-10.4); MONOCYTES 7.3 % (2-11); NEUTROPHIL ABS# 5.61 10x3/uL (1.78-5.38); RBC 3.43 10x6/uL (4.20-6.10); RDW 13.6 % (11.5-14.5)
[2020-11-19 06:41] LABS: PLATELET COUNT 379 10x3/uL (130-400)
[2020-11-19 06:48] LABS: CALC OSMOLALITY 272 mosm/kg (275-300); CALCIUM 9.2 mg/dL (8.5-10.1); CARBON DIOXIDE 32.3 mmol/L (21.0-32.0); CHLORIDE - SERUM 102 mmol/L (98-107); CREATININE - SERUM 0.7 mg/dL (0.6-1.3); GLUCOSE 86 mg/dL (74-106); POTASSIUM - SERUM 4.1 mmol/L (3.5-5.1); SODIUM 138 mmol/L (136-145); UREA NITROGEN 8 mg/dL (7-18); eGFR NON AFRICAN AMERICAN > 90 mL/min (90-120)
[2020-11-19 07:27] VITALS: BP 164/87
--- NOTE | 2020-11-19 13:00 | NUR ---
SITTING UP IN ROOM IN . EYES CLOSED. LOOKS TO BE NAPPING. WEARING OXYGEN AT 2L VIA NC. LUE IN SLING. NO S/S DISTRESS. CALL LIGHT IN REACH
--- NOTE | 2020-11-19 18:45 | NUR ---
RECEIVED PT SITTING UP IN RECLINER. ALERT AND ORIENTED X4. DENIES ANY NEEDS OR PAIN. CONTINUES ON O2/3L HUMIDIFIED VIA NC. LUE SLING IN PLACE. DRESSING C/D/I. CALL LIGHT AND WATER WITHIN REACH. FALL PRECAUTIONSIN PLACE. NO DISTRESS NOTED. CPOC
[2020-11-19 20:29] VITALS: BP 152/77
--- NOTE | 2020-11-20 01:30 | NUR ---
PT SITTING UP IN RECLINER EYES CLOSED RESTING. CONTINUES ON O2/4.5L O2 SAT 94%. RR EVEN AND UNLABORED. CALL LIGHT AND WATER WITHIN REACH. CPOC
--- NOTE | 2020-11-20 05:13 | NUR ---
PT SITTING UP IN RECLINER AWAKE. DENIES ANY NEEDS OR PAIN. O2 SAT 95% ON 4L O2 VIA NC. NO DISTRESS NOTED. CALL LIGHT WITHIN REACH. CPOC
[2020-11-20 08:06] VITALS: BP 136/72
--- NOTE | 2020-11-20 12:49 | NUR ---
JUST FINISHED LUNCH. LAYING SIDEWAYS ON BED WATCHING TV. SLOW TO RESPOND BUT DENIES NEEDS OR C/O. CALL LIGHT IN REACH
--- NOTE | 2020-11-20 15:11 | NUR ---
CARE TEAM MEETING: PATIENT IS PROGRESSING IN THERAPY. HIS TENATIVE DC DATE IS 11/25/20. WILL CONTINUE TO FOLLOW WITH PATIENT.
--- NOTE | 2020-11-20 15:44 | NUR ---
PATIENT IS GIVEN NUMBER TO [facility] TO GET ESTABLISHED WITH A PCP. WILL CONTINUE TO FOLLOW WITH PATIENT.
--- NOTE | 2020-11-20 18:50 | NUR ---
RECEIVED PT LYING IN BED EYES CLOSED RESTING. EASILY AROUSED WITH STIMULI. DENIES ANY NEEDS OR PAIN. CONTINUES ON O2/4L VIA NC. LUE SLING ON AND DRESSING INTACT. NICOTINE PATCH TO LEFT CHEST. NO DISTRESS NOTED. CALL LIGHT AND WATER WITHIN REACH. FALL PRECAUTIONS IN PLACE. CPOC
[2020-11-20 20:28] VITALS: BP 134/74
--- NOTE | 2020-11-20 21:45 | NUR ---
PT LYING IN BED EYES CLOSED RESTING. HS MEDS ADMININSTERED. LEFT SHOULDER DRESSING REMOVED, NO DRAINAGE NOTED, INCISION WITHOUT REDNESS OR WARMTH. SURGICAL CLOSURE DERMABOND INTACT. CLEANSED INCISION WITH NS, PATTED DRY WITH 4X4, COVERED WITH ISLAND DRESSING. DATE, TIME, INITIALED. SLING SECURED. NO NEEDS VOICED. CALL LIGHT WITHIN REACH. FALL PRECAUTIONS IN PLACE. CPOC
--- NOTE | 2020-11-21 02:20 | NUR ---
PT LYING IN BED SUPINE EYES CLOSED RESTING. HOB ELEVATED. RR EVEN AND UNLABORED. CALL LIGHT WITHIN REACH. CPOC
--- NOTE | 2020-11-21 05:57 | NUR ---
PT SITTING UP IN RECLINER AWAKE. ALERT AND ORIENTED X3. PT HAS HAD URINE INCONTINENT EPISODE THIS AM. PT REPORTS HAVING A SUDDEN URGE AND WAS UNABLE TO MAKE IT TO RESTROOM. NO OTHER ISSUES THIS SHIFT. NO DISTRESS NOTED. PT CONTINUES ON O2/4L VIA NC. CALL LIGHT WITHIN REACH. FALL PRECAUTIONS IN PLACE. CPOC
--- NOTE | 2020-11-21 07:39 | NUR ---
WALKING IN [facility] WITH THERAPY. DENIES INCREASED SOB OR PAIN.
[2020-11-21 08:00] VITALS: BP 134/74
[2020-11-21 08:16] LABS: BASOPHILS 0.2 % (0-2); EOSINOPHILS 1.6 % (0-7); HEMATOCRIT 34.7 % (42.0-54.0); HEMOGLOBIN 10.9 g/dL (13.5-17.5); IMMATURE GRANULOCYTES 0.6 % (0-5); LYMPHOCYTE ABS# 1.48 10x3/uL (1.32-3.57); LYMPHOCYTES 17.8 % (15-50); MCH 32.5 pg (26.0-34.0); MCHC 31.4 g/dL (31.0-37.0); MCV 103.6 fL (80.0-100.0); MEAN PLATELET VOLUME 8.7 fL (7.4-10.4); MONOCYTES 5.7 % (2-11); NEUTROPHIL ABS# 6.16 10x3/uL (1.78-5.38); NEUTROPHILS 74.1 % (40-80); PLATELET COUNT 405 10x3/uL (130-400); RBC 3.35 10x6/uL (4.20-6.10); RDW 13.8 % (11.5-14.5); WBC 8.3 10x3/uL (4.8-10.8)
[2020-11-21 08:31] LABS: CALC OSMOLALITY 270 mosm/kg (275-300); CALCIUM 8.7 mg/dL (8.5-10.1); CARBON DIOXIDE 32.1 mmol/L (21.0-32.0); CHLORIDE - SERUM 102 mmol/L (98-107); CREATININE - SERUM 0.7 mg/dL (0.6-1.3); GLUCOSE 83 mg/dL (74-106); POTASSIUM - SERUM 4.7 mmol/L (3.5-5.1); SODIUM 137 mmol/L (136-145); UREA NITROGEN 8 mg/dL (7-18); eGFR NON AFRICAN AMERICAN > 90 mL/min (90-120)
--- NOTE | 2020-11-21 14:58 | NUR ---
SITTING UP IN WC IN ROOM. STILL SEEMS SLOW TO RESPOND BUT COOPERATIVE. DENIES NEEDS. CALL LIGHT IN REACH
[2020-11-21 19:36] VITALS: BP 109/59
--- NOTE | 2020-11-21 22:03 | NUR ---
PATIENT RECEIVED SITTING UP IN BED. ASSESSMENT & VITAL SIGNS DONE. NO C/O PAIN OR DISTRESS. BED LOW. CALL LIGHT WITHIN REACH. WILL CONTINUE TO MONITOR.
--- NOTE | 2020-11-22 00:24 | NUR ---
PATIENT USED CALL LIGHT FOR ASSIST. PATIENT SITTING ON SIDE OF BED. URINAL HAD 600 CC OF YELLOW COLOR URINE & WAS EMPTIED. PATIENT RAIL UP ONE TIME. PATIENT SAT UP TWICE TO HAVE BODY UP ENOUGH TO LAY DOWN. PATIENT ASSIST WITH LEGS INTO BED. PILLOW PLACED UNDER LEFT ARM. SIDETABLE, URINAL & CALL LIGHT WITHIN REACH. ALARM ON. WILL CONTINUE TO MONITOR.
--- NOTE | 2020-11-22 01:18 | NUR ---
I have reviewed this patient and I concur with the Shift Assessment completed by the Licensed Practical Nurse today this shift.
--- NOTE | 2020-11-22 04:52 | NUR ---
PATIENT ON ROUNDS EYES CLOSED. RESPIRATIONS 20 & EVEN. URINAL HAD 400 CC OF YELLOW COLOR URINE. BED LOW. CALL LIGHT, URINAL, & SIDETABLE WITHIN REACH. WILL CONTINUE TO MONITOR.
--- NOTE | 2020-11-22 08:00 | NUR ---
SHIFT ASSMT COMPLETED.UP OOB TO CHAIR.BREAKFAST GIVEN.
[2020-11-22 10:21] VITALS: BP 133/55
--- NOTE | 2020-11-22 12:00 | NUR ---
EATING LUNCH.UP IN CHAIR
--- NOTE | 2020-11-22 16:00 | NUR ---
REMAINS UP IN CHAIR.
[2020-11-22 19:00] VITALS: BP 140/71
--- NOTE | 2020-11-22 19:43 | NUR ---
AWAKE AND ALERT. SITTING IN WHEELCHAIR. RESPIRATIONS UNLABORED ON O2/2L PER NASAL CANNULA. LEFT SHOULDER IN SLING. LEFT SHOULDER DRESSING DRY AND INTACT. STATES HE FEELS BETTER TODAY. NO DISTRESS NOTED.
--- NOTE | 2020-11-23 03:10 | NUR ---
MEDICATED FOR C/O BACK PAIN. SEE MAR. ASSISTED TO SIT IN CHAIR BESIDE BED. LEFT ARM SLING IN PLACE. CALL LIGHT IN REACH.
--- NOTE | 2020-11-23 05:05 | NUR ---
SITTING IN RECLINER CHAIR DOZING. RESPIRATIONS UNLABORED. O2 ON. CALL LIGHT IN REACH.
--- NOTE | 2020-11-23 08:00 | NUR ---
SHIFT ASSMT COMPLETED.CL IN REACH.UP OOB TO CHAIR FOR BREAKFAST.
--- NOTE | 2020-11-23 12:00 | NUR ---
RESTING QUIETLY.O2 DOWN TO 2.5L/NC
[2020-11-23 13:28] VITALS: BP 124/56
[2020-11-23 19:00] VITALS: BP 133/61
--- NOTE | 2020-11-23 19:31 | NUR ---
AWAKE AND ALERT. SITTING IN CHAIR IN ROOM. O2/2L ON PER NASAL CANNULA. LEFT ARM IN SLING. NO ACUTE DISTRESS NOTED.
--- NOTE | 2020-11-24 00:30 | NUR ---
RESTING QUIETLY IN BED WITH NO DISTRESS NOTED.
--- NOTE | 2020-11-24 04:56 | NUR ---
AWAKE AND ALERT. CHIEF LOCK TENDER OPERATOR IS BATHING PATIENT. O2 ON. NO ACUTE DISTRESS NOTED.
[2020-11-24 07:51] VITALS: BP 146/78
[2020-11-24] MEDS ORDERED: HYDROCODON-ACE1 EA10 PO (09:01)
--- NOTE | 2020-11-24 09:02 | RHP ---
PATIENT: MANDY TORRES MEDICAL RECORD: [id number] ACCOUNT: [id number] LOCATION:[facility] : 46 ADMISSION DATE: 11/12/20 REHABILITATION HISTORY AND PHYSICAL EXAMINATION POST ADMISSION PHYSICIAN EXAMINATION ADMITTING DIAGNOSIS: Debility. HISTORY OF PRESENT ILLNESS: The patient is admitted to rehab secondary to muscular wasting and disuse atrophy. A 69-year-old gentleman who presented to the ED after a syncopal episode and a fall that injured his left shoulder. He was complaining of left-sided chest pain. He reported that he had a significant amount of alcohol the evening prior to admit, thought he passed out falling down some steps. The patient was told by orthopedics that he had a significant tear in his rotator cuff muscles and tendons. He has got limited range of motion in that shoulder and apparently this has been going on for quite some time. The patient had a CT of his shoulder, which showed no acute fracture of the surgical neck of the proximal left humerus as well as acute fractures of the posterior left fifth and sixth ribs. He was seen by orthopedic and underwent a left reverse total shoulder arthroplasty for a left proximal humerus fracture on 10/21/2020. He has had some acute blood loss anemia after this. He has had some respiratory complications requiring supplemental O2. He has got acute pain, self-care deficits, impaired mobility, been receiving occupational and physical therapy throughout his stay. He lives at home alone in a bilevel home, was completely independent with ADLs and mobility prior to this. He has a daughter that plans to come and stay with him from out of town once he is discharged home. He is currently set up for max assist for his ADLs, mod assist for his mobility. He would like to discharge home with home health and get back to his prior level of functioning. COMORBIDITIES: In this patient include weakness, left humeral fracture, left fifth and sixth fractures, acute nicotine withdrawal and alcohol use, hypomagnesemia and chronic coronary artery disease. PAST MEDICAL HISTORY: Significant for coronary artery disease with stents. He has got a history of alcohol use, tobacco use, left shoulder tendon complications. PAST SURGICAL HISTORY: Includes angioplasty with stents. He has had hand surgery and abdominal surgery. ALLERGIES: FLOMAX. CURRENT MEDICATIONS: Include thiamine 100 mg daily, polyethylene glycol 17 grams in 8 ounces of water daily, he is on a Nicoderm patch 21 mg daily, multivitamin daily, DuoNeb updisael, he is on Ativan 1 mg every 1 hour p.r.n. DTs, milk of mag p.r.n. constipation, [place] 10/325 one tab every 6 hours p.r.n., hydralazine 10 mg every 6 hours p.r.n., Mucinex 1200 mg b.i.d., Colace 100 mg b.i.d., Librium 25 mg b.i.d. HABITS: Does have a history of tobacco and alcohol use. FAMILY HISTORY: Noncontributory. SOCIAL HISTORY: The patient hopes to return back home and get back to his prior HISTORY AND PHYSICAL [id number] [facility] level of functioning. REVIEW OF SYSTEMS: GENERAL: Does complain of weakness and fatigue. HEENT: Denies cold, cough or congestion. CARDIOVASCULAR: Denies any chest pain. PHYSICAL EXAMINATION: VITAL SIGNS: Stable and afebrile. GENERAL: A somewhat obese gentleman in no acute distress upon exam. HEENT: Normocephalic and atraumatic. Mucosa moist. NECK: Supple. No lymphadenopathy. LUNGS: Clear in upper prasad. No wheezing or rales. HEART: Regular rate and rhythm. No murmurs, rubs or gallops. ABDOMEN: Soft, benign, nondistended. Positive bowel sounds times 4. EXTREMITIES: No clubbing, cyanosis. Postoperative area looks pretty good. NEUROLOGIC: He is mainly intact, but does have some diffuse weakness. LABORATORY DATA: White count is 8000, H&H of 11 and 34 and platelet count is 225. His sodium is 139, potassium 3.4, BUN and creatinine of 11 and 0.7, blood sugar is noted to be 90. ASSESSMENT: This is a 69-year-old gentleman admitted to the rehab with a working diagnosis of debility secondary to recent humeral fracture and also alcohol and tobacco use. The patient has potential to make improvement. We instituted the following multidisciplinary therapies including not limited to physical, occupational, respiratory, speech, nutritional services, prosthetics and orthotics. Given his complex medical condition and risks for more complications, rehabilitation services cannot be provided at a low level of care such as [facility]ci facility. PLAN: 1. Admit to [facility] for inpatient therapy to include the following disciplines; A. Physical therapy to improve gait, all transfer skills and bed mobility to a modified independent level. B. Occupational therapy to improve activities of daily living. C. Case management to help with discharge planning and placement options. D. Nutrition to assist with nutritional needs. E. Rehabilitation nursing to assist in monitoring the patient's underlying medical condition and to assist with any type of bowel or bladder management. 2. The patient's current medication and Medicare will be continued. 3. Placed on standard fall precautions. 4. The patient's estimated length of stay is approximately 7-10 days. 5. Discuss this patient during care team staff meeting this week. TRANSINT:[id number] Voice Confirmation ID: [id number] DOCUMENT ID: [id number] MICHELLE notes whether there has been none or any medical/functional change since admission: - No change since preadmission screen. MICHELLE attests patient continues to be appropriate for IRF: HISTORY AND PHYSICAL [id number] MANDY TORRES - Continues to be appropriate. NASIM POST MD at 0902 CC: [id number] DICTATION DATE: 11/13/2045 RN PROCEDURE: 11/13/20 0923 ADM IN [facility] [address] [id number]
[2020-11-24 09:03] LABS: CALC OSMOLALITY 271 mosm/kg (275-300); CALCIUM 9.3 mg/dL (8.5-10.1); CARBON DIOXIDE 28.3 mmol/L (21.0-32.0); CHLORIDE - SERUM 101 mmol/L (98-107); CREATININE - SERUM 0.8 mg/dL (0.6-1.3); GLUCOSE 90 mg/dL (74-106); POTASSIUM - SERUM 4.3 mmol/L (3.5-5.1); SODIUM 136 mmol/L (136-145); UREA NITROGEN 13 mg/dL (7-18); eGFR NON AFRICAN AMERICAN > 90 mL/min (90-120)
[2020-11-24 09:17] LABS: BASOPHILS 0.3 % (0-2); HEMATOCRIT 35.7 % (42.0-54.0); HEMOGLOBIN 11.4 g/dL (13.5-17.5); IMMATURE GRANULOCYTES 0.3 % (0-5); LYMPHOCYTE ABS# 1.48 10x3/uL (1.32-3.57); LYMPHOCYTES 20.1 % (15-50); MCH 32.7 pg (26.0-34.0); MCHC 31.9 g/dL (31.0-37.0); MCV 102.3 fL (80.0-100.0); MEAN PLATELET VOLUME 8.8 fL (7.4-10.4); MONOCYTES 6.1 % (2-11); NEUTROPHIL ABS# 5.23 10x3/uL (1.78-5.38); NEUTROPHILS 71.2 % (40-80); PLATELET COUNT 435 10x3/uL (130-400); RBC 3.49 10x6/uL (4.20-6.10); RDW 13.4 % (11.5-14.5); WBC 7.4 10x3/uL (4.8-10.8)
--- NOTE | 2020-11-24 18:45 | NUR ---
RECEIVED PT SITTING UP IN RECLINER. ALERT AND ORIENTED X3. DENIES ANY NEEDS OR PAIN. NICOTINE PATCH RIGHT CHEST INTACT. CONTINUES ON O2/4L VIA NC. LUE IN SLING. NO DISTRESS NOTED. CALL LIGHT AND WATER WITHIN REACH. FALL PRECAUTIONS IN PLACE. CPOC
[2020-11-24 21:48] VITALS: BP 140/70
--- NOTE | 2020-11-24 23:24 | NUR ---
PT LYING IN BED SUPINE EYES CLOSED RESTING. HOB ELEVATED. RR EVEN AND UNLABORED. NO DISTRESS NOTED. CALL LIGHT WITHIN REACH. CPOC
--- NOTE | 2020-11-25 03:37 | NUR ---
PT LYING IN BED SUPINE EYES CLOSED RESTING. RR EVEN AND UNLABORED. NO DISTRESS NOTED. HOB ELEVATED. CALL LIGHT WITHIN REACH. CPOC
[2020-11-25 08:06] VITALS: BP 132/77
--- NOTE | 2020-11-25 09:56 | NUR ---
SITTING UP IN WC IN ROOM. DENIES NEEDS OR C/O. IS SCHEDULED TO GO HOME TODAY. LUE STILL IN SLING. GETS UP AND WALKS BY SELF WITH SBA TO BATHROOM. CALL LIGHT IN REACH
--- NOTE | 2020-11-25 10:04 | NUR ---
PATIENT DISCHARGING HOME TODAY WITH FAMILY. [facility] WILL PROVIDE THERAPY AT HOME. COMPARE DATA REVIEWED AND PATIENT VOICED UNDERSTANDING. RODRICK SIGNED, IMM SERVED AND EXPLAINED, ONE GIVEN TO PATIENT AND ONE FILED IN CHART. NO NEW DME NEEDED AT THIS TIME. LESLI CARDOSO APN 12/01/20 @ 9:20, DR. LEE 12/04/20 @ 10:40. DISCHARGE INSTRUCTIONS FAXED TO PCP, HOME HEALTH AND REVIEWED WITH PATIENT.
--- NOTE | 2020-11-25 13:17 | NUR ---
DC HOME WITH ALL PERSONAL BELONGINGS. MEDS CALLED IN TO PHARMACY. LEFT FLOOR IN WC. INCISION HAS GLUE STRIP CLOSING EDGES.
== END 2020-11-25 13:21 | disposition home health service (06) | DRG 948 ==
LOC: D.REHAB 21:16
PROVIDERS: ADMIT Emergency Medicine; ATTEND Emergency Medicine
DX: R53.81 Other malaise (principal); F17.203 Nicotine dependence unspecified, with withdrawal; M62.50 Muscle wasting and atrophy, not elsewhere classified, unspecified site; S42.302D Unspecified fracture of shaft of humerus, left arm, subsequent encounter for fracture with routine healing; W19.XXXD Unspecified fall, subsequent encounter; S22.42XD Multiple fractures of ribs, left side, subsequent encounter for fracture with routine healing; Z72.89 Other problems related to lifestyle; E83.42 Hypomagnesemia; I25.10 Atherosclerotic heart disease of native coronary artery without angina pectoris; R53.1 Weakness